=== PATIENT | female | born 1985 | race Caucasian/White ===

== ENCOUNTER 2023-02-19 08:54 | Emergency (ER) | payer OTHER ==
[~2023-02-19] VITALS: Ht 154.9 cm; Wt 76.7 kg
[2023-02-19 08:55] VITALS: BP_SYST 165
--- NOTE | 2023-02-19 09:03 | NUR ---
ER Dr. FREEMAN at bedside examining patient.
--- NOTE | 2023-02-19 09:05 | NUR ---
PT BIB SELF FROM ANOTHER DEPARTMENT IN THE HOSPITAL, AMBULATED TO BED 7. PT A&Ox4, ABLE TO MAKE NEEDS KNOWN. PT STATES SHE WAS BITTEN BY A PATIENT SHE WAS TREATING. PUNCTURE WOUND NOTED ON LEFT INDEX FINGER AND A SCRATCH ON BACK OF HAND. PT RATES PAIN 5/10. PT DESCRIBES PAIN THROBBING. SAFETY PRECAUTIONS IN PLACE.
[2023-02-19] MEDS ORDERED: DIPHTH,PERTUSS(ACELL),TET VAC 0.5 ML VIAL (Tdap) I.M. ONE (09:15)
[2023-02-19] MEDS ORDERED: AMOX-423 PO (10:36)
[2023-02-19 10:52] VITALS: BP_SYST 135
--- NOTE | 2023-02-19 10:53 | NUR ---
Patient given written and verbal discharge instructions and verbalizes understanding. ER MD discussed with patient the results and treatment provided. Patient in stable condition. ID arm band removed. Rx OF aMOXICILLIN given. Patient educated on pain management and to follow up with PMD. Pain Scale 0. Opportunity for questions provided and answered. Medication side effect fact sheet provided.
[2023-02-22 02:06] LABS: HEPATITIS A AB, IgM Negative (Negative); HEPATITIS B CORE AB, IgM Negative (Negative); HEPATITIS B SURFACE AG Negative (Negative)
== END 2023-02-19 10:51 | disposition home or self-care (01) ==
LOC: SED 08:54
DX: S61.452A Open bite of left hand, initial encounter (principal); Z88.0 Allergy status to penicillin; Z79.899 Other long term (current) drug therapy; W50.3XXA Accidental bite by another person, initial encounter; Y93.89 Activity, other specified; Y92.89 Other specified places as the place of occurrence of the external cause; Y99.8 Other external cause status
CPT/HCPCS: 36415; 73140-TC; 80074; 90715; 99284